=== PATIENT | female | born 1950 | race Caucasian/White ===

== ENCOUNTER 2019-10-22 12:36 | Emergency (ER) | payer MEDICARE, OTHER ==
[~2019-10-22] VITALS: Ht 152.4 cm; Wt 76.2 kg
[2019-10-22 13:20] LABS: BASOPHILS ABSOLUTE AUTO 0.02 K/mm3 (0.00-0.23); BASOPHILS PERCENT AUTO 0 % (0-2); EOSINOPHILS ABSOLUTE AUTO 0.02 K/mm3 (0.00-0.68); EOSINOPHILS PERCENT AUTO 0 % (0-6); IMMATURE GRAN ABSOLUTE AUTO 0.01 K/mm3 (0.00-0.10); IMMATURE GRAN PERCENT AUTO 0 % (0-1); LYMPHOCYTES ABSOLUTE AUTO 1.82 K/mm3 (0.84-5.20); LYMPHOCYTES PERCENT AUTO 33 % (21-46); MONOCYTES ABSOLUTE AUTO 0.51 K/mm3 (0.16-1.47); MONOCYTES PERCENT AUTO 9 % (4-13); Mean Corpuscular HGB 28.8 pg (26.0-34.0); Mean Corpuscular HGB Conc 32.5 g/dL (31.5-36.5); Mean Corpuscular Volume 89 fL (80-100); Mean Platelet Volume 10.3 fL (9.1-12.4); NEUTROPHILS ABSOLUTE AUTO 3.18 K/mm3 (1.96-9.15); NEUTROPHILS PERCENT AUTO 57 % (41-73); Platelet Count 224 K/mm3 (150-400); RDW Coefficient Variation 12.5 % (11.7-14.2); RDW Standard Deviation 40.4 fL (35.1-46.3); Red Blood Cell Count 4.52 M/mm3 (3.80-5.20); White Blood Cell Count 5.56 K/mm3 (4.00-11.30)
[2019-10-22 13:35] LABS: International Normalized Ratio 1.02; Prothrombin Time Results 10.9 Sec (9.7-11.5)
[2019-10-22 13:47] LABS: Alanine Aminotransfer (ALT/SGP 19 U/L (12-78); Albumin, Blood 3.4 g/dL (3.4-5.0); Albumin/Globulin Ratio 0.8 (0.8-1.8); Alk Phos 97 U/L (50-136); Anion Gap 8 mmol/L (6-16); Aspartate Aminotrans (AST/SGOT 20 U/L (12-37); Bilirubin, Total 0.4 mg/dL (0.1-1.0); Blood Urea Nitrogen 15 mg/dL (8-24); Bun/Creatinine Ratio 18.9 (12.0-20.0); CO2, Blood 23 mmol/L (21-32); Chloride, Blood 109 mmol/L (98-108); Creatinine, Blood 0.79 mg/dL (0.40-1.00); Glomerular Filtration Rate >60 (60-); Glucose, Blood 102 mg/dL (70-99); Potassium, Blood 3.8 mmol/L (3.5-5.5); Sodium, Blood 140 mmol/L (136-145); Total Protein, Blood 7.4 g/dL (6.4-8.2); Troponin I <0.015 ng/mL (0.000-0.040)
[2019-10-22 15:37] LABS: Source, Urine Clean Catch
[2019-10-22] MEDS ORDERED: LISI20 PO (15:37)
[2019-10-22] MEDS ORDERED: METO25ER (15:37)
[2019-10-22] MEDS ORDERED: ELIQUIS5 MG PO (15:38)
[2019-10-22 15:46] LABS: Bilirubin, Urine Neg (Neg); Blood, Urine 2+ (Neg); Glucose Qualitative, Urine Neg (Neg); Ketones, Urine Neg (Neg); Leukocyte Esterase, Urine 1+ (Neg); Nitrite, Urine Neg (Neg); Protein, Urine Neg (Neg); Urobilinogen, Urine NORM (Normal)
[2019-10-22 15:56] LABS: Appearance, Urine Clear (Clear); Color, Urine Yellow (P-Yellow)
[2019-10-22 15:57] LABS: Bacteria Few /hpf; Mucus Light (0-Heavy); Squamous Epithelial Cells Few /hpf (Few); White Blood Cells, Urine 0-2 /hpf (0-5)
[2019-10-22] MEDS ORDERED: SULTRIDS PO (16:13)
== END 2019-10-22 16:44 | disposition home or self-care (01) ==
LOC: ER 12:36
PROVIDERS: Physician Assistant
DX: R55 Syncope and collapse (principal); R53.1 Weakness; N39.0 Urinary tract infection, site not specified; I10 Essential (primary) hypertension; F41.9 Anxiety disorder, unspecified; I48.91 Unspecified atrial fibrillation; Z79.899 Other long term (current) drug therapy
CPT/HCPCS: 36415; 80053; 81001; 84484; 85025; 85610; 87086; 93005; 93010; 99284-25; A9270-GY

== ENCOUNTER 2020-07-01 06:20 | Emergency (ER) | payer MEDICARE, OTHER ==
[~2020-07-01] VITALS: Ht 152.4 cm; Wt 74.8 kg
[~2020-07-01 06:20] MED LIST: ELIQUIS5 MG PO; LISI20 PO; METO25ER; SULTRIDS PO
[2020-07-01 06:57] LABS: BASOPHILS ABSOLUTE AUTO 0.04 K/mm3 (0.00-0.23); BASOPHILS PERCENT AUTO 1 % (0-2); EOSINOPHILS ABSOLUTE AUTO 0.04 K/mm3 (0.00-0.68); EOSINOPHILS PERCENT AUTO 1 % (0-6); Hematocrit 41.7 % (33.0-51.0); Hemoglobin 13.5 g/dL (11.5-16.0); IMMATURE GRAN PERCENT AUTO 0 % (0-1); LYMPHOCYTES PERCENT AUTO 28 % (21-46); MONOCYTES ABSOLUTE AUTO 0.45 K/mm3 (0.16-1.47); MONOCYTES PERCENT AUTO 10 % (4-13); Mean Corpuscular HGB 27.7 pg (26.0-34.0); Mean Corpuscular HGB Conc 32.4 g/dL (31.5-36.5); Mean Corpuscular Volume 86 fL (80-100); Mean Platelet Volume 10.3 fL (9.1-12.4); NEUTROPHILS PERCENT AUTO 61 % (41-73); Platelet Count 253 K/mm3 (150-400); RDW Coefficient Variation 12.4 % (11.7-14.2); RDW Standard Deviation 38.9 fL (35.1-46.3); Red Blood Cell Count 4.87 M/mm3 (3.80-5.20); White Blood Cell Count 4.73 K/mm3 (4.00-11.30)
[2020-07-01 07:20] LABS: Alanine Aminotransfer (ALT/SGP 20 U/L (12-78); Albumin, Blood 3.4 g/dL (3.4-5.0); Albumin/Globulin Ratio 0.8 (0.8-1.8); Alk Phos 101 U/L (50-136); Anion Gap 8 mmol/L (6-16); Aspartate Aminotrans (AST/SGOT 19 U/L (12-37); Bilirubin, Total 1.2 mg/dL (0.1-1.0); Blood Urea Nitrogen 13 mg/dL (8-24); Bun/Creatinine Ratio 17.2 (12.0-20.0); CO2, Blood 24 mmol/L (21-32); Calcium, Blood 9.1 mg/dL (8.5-10.1); Chloride, Blood 110 mmol/L (98-108); Creatinine, Blood 0.76 mg/dL (0.40-1.00); Glomerular Filtration Rate >60 (60-); Glucose, Blood 121 mg/dL (70-99); Potassium, Blood 3.3 mmol/L (3.5-5.5); Sodium, Blood 142 mmol/L (136-145); Total Protein, Blood 7.4 g/dL (6.4-8.2); Troponin I <0.015 ng/mL (0.000-0.040)
== END 2020-07-01 08:11 | disposition home or self-care (01) ==
LOC: ER 06:20
PROVIDERS: Emergency Medicine
DX: I10 Essential (primary) hypertension (principal); R53.1 Weakness; I48.91 Unspecified atrial fibrillation; Z88.0 Allergy status to penicillin; Z79.01 Long term (current) use of anticoagulants; Z79.899 Other long term (current) drug therapy
CPT/HCPCS: 36415; 70450; 80053; 84484; 85025; 93005; 93010; 96374; 99284-25; A9270; J2060

== ENCOUNTER → 2021-08-07 | Outpatient (CLI) | payer MEDICARE, OTHER | END | disposition home or self-care (01) | LOC: LAB 10:29 → LAB SHORT 10:29 | DX: N39.0 Urinary tract infection, site not specified (principal) | CPT/HCPCS: 87086 ==

== ENCOUNTER 2022-03-08 08:38 | Day surgery (SDC) | payer MEDICARE, OTHER ==
[~2022-03-08 08:38] MED LIST changes: +MOTION RELIEF25 MG PO; +ONDA4ODT SL
--- NOTE | 2022-03-08 09:18 | NUR ---
PT. AMBULATED TO PREP ROOM FOR CTA, PLACED ON FUNDING COORDINATOR, NSR NOTED. PT. HR IN THE 60S. BP ELEVATED AT THIS TIME, PT REPORTS SHE USUALLY HAS ELEVATED BP AT THE DOCTOR OFFICE. WILL MONTIOR. PT. DENIES ANY CHEST PAIN OR PRESSURE. IV STARTED TO RAC, POSITIVE BLOOD RETURN WITH START. PT AMBULATED TO CT ROOM FOR PROCEDURE.
--- NOTE | 2022-03-08 09:38 | NUR ---
iv removed, water bottle provided, pt ambulated to exit. vss upon discharge.
== END 2022-03-08 23:11 | disposition home or self-care (01) ==
LOC: CT 08:38
DX: R07.89 Other chest pain (principal); I48.0 Paroxysmal atrial fibrillation; I10 Essential (primary) hypertension; E78.5 Hyperlipidemia, unspecified; I25.10 Atherosclerotic heart disease of native coronary artery without angina pectoris
CPT/HCPCS: 75574; Q9967

== ENCOUNTER 2023-06-14 07:12 | Day surgery (SDC) | payer MEDICARE, OTHER ==
[~2023-06-14] VITALS: Ht 152.4 cm; Wt 74.8 kg
[~2023-06-14 07:12] MED LIST changes: +AMLO5 PO; +METO50ER PO
--- NOTE | 2023-06-14 09:13 | NUR ---
06/14/23 0913 Terry Workman 4ML OF SPOT MARKER USED TO JAZZ POLYP IN TRANSVERSE/HEPATIC FLEXURE.
[2023-06-14 09:34] VITALS: BP 135/78
== END 2023-06-14 09:45 | disposition home or self-care (01) ==
LOC: ORSCSDS 07:12
PROVIDERS: Internal Medicine Gastroenterology
PROC: 0DBL8ZX Excision of Transverse Colon, Via Natural or Artificial Opening Endoscopic, Diagnostic (ICD-10-PCS; principal; 2023-06-14 08:30)
DX: Z12.11 Encounter for screening for malignant neoplasm of colon (principal); R19.5 Other fecal abnormalities; D12.3 Benign neoplasm of transverse colon; K64.8 Other hemorrhoids; E78.5 Hyperlipidemia, unspecified; I48.91 Unspecified atrial fibrillation; I10 Essential (primary) hypertension; Z79.01 Long term (current) use of anticoagulants; Z79.899 Other long term (current) drug therapy
CPT/HCPCS: 88305; J2704; J7120